=== PATIENT | male | born 1995 | race Caucasian/White ===

== ENCOUNTER 2017-02-02 12:27 | Emergency (ER) | payer OTHER ==
[~2017-02-02] VITALS: Ht 177.8 cm; Wt 104.3 kg
[2017-02-02 12:31] VITALS: BP 144/75
--- NOTE | 2017-02-02 13:08 | ED GENERAL ADULT ---
History of Present Illness General Chief Complaint: General Adult Stated Complaint: BIBA EXPOSURE Source: patient Exam Limitations: no limitations Vital Signs & Intake/Output Vital Signs & Intake/Output ED Intake and Output 02/03 0000 02/02 1200 Intake Total Output Total Balance Patient 230 lb Weight Weight Reported by Patient Measurement Method Allergies Coded Allergies: vancomycin (RED MAN SYNDROME 02/02/17) Reconcile Medications No Known Home Medications Triage Note: PT STATES HE WAS CHECKING A PT BS AND THE BLOOD SQUIRTED ON HIS FACE. PT DENIES GETTING IT IN HIS EYE. PT STATES HIS PT DID TELL HIM HE IS + FOR HEP C Triage Nurses Notes Reviewed? 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 There is no mucous membrane exposure, there are no cuts or open wounds on the patient's face. He immediately wiped the blood from his face. The onset of the symptoms were abrupt, the duration was approximately in the last hour, the severity was significant as his symptoms required him to come to the emergency department for care This was a non-exposure upon obtaining the full history and examining the patient's face and finding no cut, or open wound. No history of eye or mouth contact. Past History Travel History Traveled to [place] past 21 day No Medical History Any Pertinent Medical History? see below for history Surgical History Surgical History: non-contributory Psychosocial History What is your primary language Hungarian Tobacco Use: Never used ETOH Use: occasional use Illicit Drug Use: denies illicit drug use Family History Hx Contributory? No Review of Systems Review of Systems Constitutional: Reports: no symptoms. EENTM: Denies: blurred vision, visual changes, eye pain, eye drainage, eye tearing. Respiratory: Reports: no symptoms. Cardiovascular: Reports: no symptoms. GI: Reports: no symptoms. Genitourinary: Reports: no symptoms. Musculoskeletal: Reports: no symptoms. Skin: Reports: see HPI. Neurological/Psychological: Reports: no symptoms. Hematologic/Endocrine: Denies: bruising. Immunologic/Allergic: Reports: no symptoms. Physical Exam Physical Exam General Appearance: well developed/nourished, alert, awake, anxious Head: atraumatic, normal appearance Eyes: Bilateral: normal appearance, PERRL, EOMI. Ears, Nose, Throat: normal pharynx, normal ENT inspection Neck: normal inspection, supple Respiratory: no respiratory distress Back: normal range of motion Extremities: normal inspection, normal range of motion Neurologic/Psych: no motor/sensory deficits, awake, alert, oriented x 3, normal gait Skin: intact, normal color, warm/dry Core Measures ACS in differential dx? No CVA/TIA Diagnosis: No Severe Sepsis Present: No Septic Shock Present: No Progress Differential Diagnoses I considered the following diagnoses in my evaluation of the patient: [Mucous membrane exposure, blood-borne pathogen exposure] Plan of Care: Follow-up as needed. Initial ED EKG: none Departure Departure Disposition: HOME OR SELF CARE Condition: Stable Clinical Impression Primary Impression: Exposure to blood Referrals: PATIENT HAS NO PRIMARY CARE DR (PCP/Family) Departure Forms: [employer] General Discharge Information Prescriptions: Current Visit Scripts No Known Home Medications Comments There was no contact with open wounds or mucous membranes. The patient was told to follow up as needed. Critical Care Note Critical Care Note Critical Care Time: non-applicable
== END 2017-02-02 13:21 ==
LOC: ERH 12:27
DX: Z77.21 Contact with and (suspected) exposure to potentially hazardous body fluids (principal); X58.XXXA Exposure to other specified factors, initial encounter; Y93.89 Activity, other specified; Y92.9 Unspecified place or not applicable
CPT/HCPCS: 99282